=== PATIENT | male | born 1980 | race Caucasian/White ===

== ENCOUNTER 2017-07-12 06:38 | Emergency (ER) | payer MEDICAID, OTHER ==
[~2017-07-12] VITALS: Ht 172.7 cm; Wt 72.6 kg
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
--- NOTE | 2017-07-12 07:14 | NUR ---
URINE SPECIMEN OBTAINED AND SENT TO THE LAB.
[2017-07-12 07:26] LABS: APPEARANCE,URINE SL CLOUDY (CLEAR); BILIRUBIN,URINE NEGATIVE (NEGATIVE); BLOOD, URINE NEGATIVE Ery/uL (NEGATIVE); COLOR,URINE DARK YELLO (YELLOW); KETONES,URINE NEGATIVE (NEGATIVE); LEUKOCYTE ESTERASE ,URINE NEGATIVE (NEGATIVE); NITRITE, URINE NEGATIVE (NEGATIVE); PROTEIN,URINE TRACE mg/dl (NEGATIVE); UGLUCOSE NEGATIVE (NEGATIVE); UROBILINOGEN,URINE 0.2 EU/dL (0.2)
[2017-07-12 07:37] LABS: BACTERIA,URINE Few /HPF (None Seen); RBC,URINE 0-2 /HPF (0-2); SQUAMOUS EPITHELIAL CELL,UR Rare /HPF (None Seen)
[2017-07-12 07:38] LABS: WBC,URINE 0-2 /HPF (0-3)
--- NOTE | 2017-07-12 07:39 | NUR ---
Patient discharged to home in stable condition. Written and verbal after care instructions given. Patient verbalizes understanding of instruction.
[2017-07-12 07:41] VITALS: BP 136/84
== END 2017-07-12 07:43 | disposition home or self-care (01) ==
LOC: ER 06:41
DX: M54.5 Low back pain (principal); J06.9 Acute upper respiratory infection, unspecified; F41.9 Anxiety disorder, unspecified; Z87.442 Personal history of urinary calculi; F17.200 Nicotine dependence, unspecified, uncomplicated
CPT/HCPCS: 81000-TC; A4606; Z7610

== ENCOUNTER 2017-07-22 03:40 | Emergency (ER) | payer OTHER ==
[~2017-07-22] VITALS: Ht 165.1 cm; Wt 95.3 kg
[2017-07-22 03:55] VITALS: BP 159/88
--- NOTE | 2017-07-22 04:16 | NUR ---
DR. LOPEZ AT BEDSIDE FOR EVAL.
[2017-07-22] MEDS ORDERED: CEFTRIAXONE 1 G VIAL ONE (04:25)
[2017-07-22] MEDS ORDERED: AZITHROMYCIN 250 MG TABLET ONE (04:26)
[2017-07-22] MEDS ORDERED: LIDOCAINE /MPF 1% VIAL 5 ML VIAL ONE (04:26)
[2017-07-22] MEDS ORDERED: AZITHROMYCIN 250 MG TABLET PO ONE (04:30)
[2017-07-22] MEDS ORDERED: CEFTRIAXONE 1 G VIAL IM ONE (04:30)
--- NOTE | 2017-07-22 04:30 | NUR ---
URINE COLLECTED. 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
== END 2017-07-22 04:39 | disposition home or self-care (01) ==
LOC: ER 03:41
DX: Z13.89 Encounter for screening for other disorder (principal); Z87.442 Personal history of urinary calculi; F17.200 Nicotine dependence, unspecified, uncomplicated
CPT/HCPCS: 87491; 87591; A4606; J0696; J3490; Z7610

== ENCOUNTER 2018-04-08 11:24 | Emergency (ER) | payer OTHER ==
[~2018-04-08] VITALS: Ht 167.6 cm; Wt 86.2 kg
--- NOTE | 2018-04-08 11:25 | NUR ---
PT BIB SELF L FLANK PAIN, DYSURIA SINCE YESTERDAY, PT IS AAOX4, NOT IN RESPIRATORY DISTRESS, V/S STABLE, KEPT RESTED AND COMFORTABLE, AWAITING ER MD FOR EVAL.
--- NOTE | 2018-04-08 12:04 | NUR ---
URINE SPECIMEN COLLECTED AND SENT TO LAB.
--- NOTE | 2018-04-08 12:10 | NUR ---
LABS DRAWNED AND SENT TO LAB.
[2018-04-08] MEDS ORDERED: ONDANSETRON HCL/PF 4 MG/2 ML VIAL ONE (12:37)
[2018-04-08 12:41] LABS: BASOPHILS % (AUTO) 0.4 % (0.0-2.0); EOSINOPHILS % (AUTO) 0.5 % (0.0-6.0); HEMATOCRIT 45 % (39-51); HEMOGLOBIN 15.5 g/dL (13.5-17.5); LYMPHOCYTES # (AUTO) 1.5 /CMM (0.8-4.8); LYMPHOCYTES % (AUTO) 17.6 % (20.0-44.0); MEAN CORPUSCULAR HGB CONC 35 g/dl (31.0-36.0); MEAN CORPUSCULAR VOLUME 92 fL (80-96); MONOCYTES # (AUTO) 0.7 /CMM (0.1-1.30); MONOCYTES % (AUTO) 7.9 % (2.0-12.0); NEUTROPHILS # (AUTO) 6.5 /CMM (1.8-8.9); NEUTROPHILS % (AUTO) 73.6 % (43.0-81.0); PLATELET COUNT (AUTO) 231 /CMM (150-450); RED BLOOD CELL COUNT(AUTO) 4.89 MIL/uL (4.5-6.0); WHITE BLOOD COUNT (AUTO) 8.8 K/uL (4.3-11.0)
[2018-04-08] MEDS: ONDANSETRON HCL/PF 4 MG/2 ML VIAL IVP ONE (12:41)
[2018-04-08] MEDS: IV NS 0.9% 1,000 ML BAG IV ONE (12:41)
[2018-04-08 12:47] LABS: CALCIUM, SERUM 9.3 mg/dL (8.5-10.1); CREATININE 0.9 mg/dL (0.6-1.3); POTASSIUM 3.9 mmol/L (3.5-5.1)
[2018-04-08 12:53] LABS: ALBUMIN 4.2 g/dL (3.4-5.0); BILIRUBIN,DIRECT 0.1 mg/dL (0.0-0.2); BILIRUBIN,TOTAL 0.4 mg/dL (0.2-1.0); TOTAL PROTEIN, SERUM 7.9 g/dL (6.4-8.2)
[2018-04-08 13:24] LABS: APPEARANCE,URINE Cloudy (CLEAR); BILIRUBIN,URINE Negative (NEGATIVE); BLOOD, URINE Trace-intact Ery/uL (NEGATIVE); COLOR,URINE Yellow (YELLOW); KETONES,URINE Trace (NEGATIVE); LEUKOCYTE ESTERASE ,URINE Small (NEGATIVE); NITRITE, URINE Negative (NEGATIVE); PH,URINE 6.5 (5.0-8.0); PROTEIN,URINE Trace mg/dl (NEGATIVE); UGLUCOSE Negative (NEGATIVE); UROBILINOGEN,URINE 0.2 EU/dL (0.2)
[2018-04-08 13:27] LABS: BACTERIA,URINE 1+ /HPF (None Seen); SQUAMOUS EPITHELIAL CELL,UR Rare /HPF (None Seen); WBC,URINE 21-50 /HPF (0-3)
[2018-04-08] MEDS ORDERED: CEFTRIAXONE 1GM BAG (ER ONLY) 50 ML IV ONE (13:46)
[2018-04-08] MEDS: CEFTRIAXONE 1GM BAG (ER ONLY) 1 GM/50 ML PIGGYBACK IV ONE (13:52)
--- NOTE | 2018-04-08 14:22 | NUR ---
IV removed. Catheter intact and site benign. Pressure and 4x4 applied to site. No bleeding noted. Patient discharged to home in stable condition. Written and verbal after care instructions given. Patient verbalizes understanding of instruction.
[2018-04-08 14:23] VITALS: BP 115/68
== END 2018-04-08 14:24 | disposition home or self-care (01) ==
LOC: ER 11:25
DX: N10 Acute pyelonephritis (principal); F17.200 Nicotine dependence, unspecified, uncomplicated; Z87.442 Personal history of urinary calculi
CPT/HCPCS: 36415; 80048-TC; 80076-TC; 81000-TC; 83690-TC; 85025-TC; 87086-TC; J0696; J2405; J7030

== ENCOUNTER 2018-04-21 07:11 | Emergency (ER) | payer OTHER ==
[~2018-04-21] VITALS: Ht 165.1 cm; Wt 86.2 kg
--- NOTE | 2018-04-21 07:33 | NUR ---
SEEN AND EXAMINED BY DR. JENKINS.
--- NOTE | 2018-04-21 07:34 | NUR ---
BIB SELF W C/O FLANK PAIN SINCE YESTERDAY, 06/23 PS. TO ER BED 1, HOOKED TO MONITOR, AWAITING MD BURCH.
[2018-04-21] MEDS ORDERED: IBUPROFEN 600 MG TABLET PO ONE ×2 (07:41→08:00)
--- NOTE | 2018-04-21 07:41 | NUR ---
URINE SPECIMEN COLLECTED AND SENT TO LAB.
--- NOTE | 2018-04-21 07:49 | NUR ---
LABS DRAWNED BY PHLEB. AWAITING RESULTS.
[2018-04-21 07:57] LABS: BASOPHILS % (AUTO) 0.4 % (0.0-2.0); EOSINOPHILS % (AUTO) 0.9 % (0.0-6.0); HEMATOCRIT 46 % (39-51); HEMOGLOBIN 15.5 g/dL (13.5-17.5); LYMPHOCYTES # (AUTO) 1.6 /CMM (0.8-4.8); LYMPHOCYTES % (AUTO) 21.1 % (20.0-44.0); MEAN CORPUSCULAR HGB CONC 34 g/dl (31.0-36.0); MEAN CORPUSCULAR VOLUME 92 fL (80-96); MONOCYTES # (AUTO) 0.5 /CMM (0.1-1.30); MONOCYTES % (AUTO) 7.2 % (2.0-12.0); NEUTROPHILS # (AUTO) 5.2 /CMM (1.8-8.9); NEUTROPHILS % (AUTO) 70.4 % (43.0-81.0); PLATELET COUNT (AUTO) 214 /CMM (150-450); RED BLOOD CELL COUNT(AUTO) 4.98 MIL/uL (4.5-6.0); WHITE BLOOD COUNT (AUTO) 7.4 K/uL (4.3-11.0)
[2018-04-21 08:00] LABS: APPEARANCE,URINE CLEAR (CLEAR); BILIRUBIN,URINE NEGATIVE (NEGATIVE); BLOOD, URINE NEGATIVE Ery/uL (NEGATIVE); COLOR,URINE YELLOW (YELLOW); KETONES,URINE NEGATIVE (NEGATIVE); LEUKOCYTE ESTERASE ,URINE NEGATIVE (NEGATIVE); NITRITE, URINE NEGATIVE (NEGATIVE); PH,URINE 5.5 (5.0-8.0); PROTEIN,URINE NEGATIVE (NEGATIVE); UGLUCOSE NEGATIVE (NEGATIVE); UROBILINOGEN,URINE 0.2 EU/dL (0.2)
[2018-04-21 08:04] LABS: CALCIUM, SERUM 9.1 mg/dL (8.5-10.1); CREATININE 0.9 mg/dL (0.6-1.3); POTASSIUM 4.3 mmol/L (3.5-5.1)
--- NOTE | 2018-04-21 08:29 | NUR ---
Patient discharged to home in stable condition. Written and verbal after care instructions given. Patient verbalizes understanding of instruction.
[2018-04-21 08:31] VITALS: BP 133/76
== END 2018-04-21 08:31 | disposition home or self-care (01) ==
LOC: ER 07:12
DX: R10.9 Unspecified abdominal pain (principal); M54.5 Low back pain; F17.200 Nicotine dependence, unspecified, uncomplicated; Z87.442 Personal history of urinary calculi; Z88.1 Allergy status to other antibiotic agents
CPT/HCPCS: 36415; 80048-TC; 81000-TC; 85025-TC; 87086-TC

== ENCOUNTER 2018-05-09 20:47 | Emergency (ER) | payer OTHER ==
[~2018-05-09] VITALS: Ht 165.1 cm; Wt 84.8 kg
[2018-05-09 21:37] VITALS: BP 128/81
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
== END 2018-05-09 21:45 | disposition home or self-care (01) ==
LOC: ER 20:50
DX: L02.213 Cutaneous abscess of chest wall (principal); L02.223 Furuncle of chest wall; F17.200 Nicotine dependence, unspecified, uncomplicated; Z87.442 Personal history of urinary calculi; Z88.1 Allergy status to other antibiotic agents
CPT/HCPCS: 99283; 99406; A4606; A6402

== ENCOUNTER 2018-05-31 00:13 | Emergency (ER) | payer OTHER ==
[~2018-05-31] VITALS: Ht 165.1 cm; Wt 83.0 kg
--- NOTE | 2018-05-31 00:37 | NUR ---
CALLED IN WAITING ROOM, NO ANSWER.
[2018-05-31 01:48] VITALS: BP 115/73
--- NOTE | 2018-05-31 02:31 | NUR ---
Patient discharged to home in stable condition. Written and verbal after care instructions given. Patient verbalizes understanding of instruction.
== END 2018-05-31 02:34 | disposition home or self-care (01) ==
LOC: ER 00:16
DX: H10.89 Other conjunctivitis (principal); F17.200 Nicotine dependence, unspecified, uncomplicated; Z87.442 Personal history of urinary calculi; Z88.1 Allergy status to other antibiotic agents
CPT/HCPCS: 99283; A4606

== ENCOUNTER 2018-06-09 00:22 | Emergency (ER) | payer OTHER ==
[~2018-06-09] VITALS: Ht 165.1 cm; Wt 83.9 kg
[2018-06-09 01:05] VITALS: BP 131/74
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
--- NOTE | 2018-06-09 02:19 | NUR ---
PT TAKEN TO RADIOLOGY VIA WHEELCHAIR
[2018-06-09] MEDS ORDERED: CYCLOBENZAPRINE 10 MG TABLET ONE (02:59)
[2018-06-09] MEDS ORDERED: ACETAMINOPHEN 325 MG TABLET ONE (02:59)
[2018-06-09] MEDS ORDERED: diphenhydrAMINE HCL 25 MG CAPSULE ONE (03:00)
[2018-06-09] MEDS ORDERED: METOCLOPRAMIDE HCL 10 MG TABLET ONE (03:00)
[2018-06-09] MEDS: DIPHENHYDRAMINE HCL 12.5 MG/5 ML UDC PO ONE (03:05)
[2018-06-09] MEDS: CYCLOBENZAPRINE 10 MG TABLET PO ONE (03:05)
[2018-06-09] MEDS: ACETAMINOPHEN 325 MG TABLET PO ONE (03:05)
[2018-06-09] MEDS: METOCLOPRAMIDE HCL 10 MG TABLET PO ONE (03:05)
--- NOTE | 2018-06-09 03:25 | NUR ---
FRIEND AT BEDSIDE
--- NOTE | 2018-06-09 04:25 | NUR ---
Patient discharged to home in stable condition. Written and verbal after care instructions given. Patient verbalizes understanding of instruction.
== END 2018-06-09 04:30 | disposition home or self-care (01) ==
LOC: ER 00:22
DX: S09.8XXA Other specified injuries of head, initial encounter (principal); M50.20 Other cervical disc displacement, unspecified cervical region; M48.02 Spinal stenosis, cervical region; F17.200 Nicotine dependence, unspecified, uncomplicated; Z88.1 Allergy status to other antibiotic agents; Z87.442 Personal history of urinary calculi; V19.88XA Pedal cyclist (driver) (passenger) injured in other specified transport accidents, initial encounter; Y93.I9 Activity, other involving external motion; Y92.89 Other specified places as the place of occurrence of the external cause; Y99.8 Other external cause status
CPT/HCPCS: 70450; 71045; 72125; 82962; 99284; J8597; Q0163 ×2

== ENCOUNTER 2020-01-03 06:50 | Emergency (ER) | payer OTHER ==
[~2020-01-03] VITALS: Ht 167.6 cm; Wt 90.7 kg
--- NOTE | 2020-01-03 06:59 | NUR ---
called pt in wr x3. no one responded. will follow up
[2020-01-03 07:17] VITALS: BP 139/70
--- NOTE | 2020-01-03 07:33 | NUR ---
Kurtis ornelas in ED - 01/03/20 at 0750 by JANEE urine collected and sent to lab
--- NOTE | 2020-01-03 07:44 | NUR ---
seen and evaluated by
--- NOTE | 2020-01-03 07:50 | NUR ---
no orders from .
== END 2020-01-03 07:51 | disposition home or self-care (01) ==
LOC: ER 06:54
DX: A64 Unspecified sexually transmitted disease (principal); F17.200 Nicotine dependence, unspecified, uncomplicated; Z88.1 Allergy status to other antibiotic agents; Z87.442 Personal history of urinary calculi